=== PATIENT | male | born 1995 | race American Indian/Alaskan Native ===

== ENCOUNTER 2020-03-23 12:41 | Emergency (ER) | payer MEDICAID ==
[~2020-03-23] VITALS: Ht 170.2 cm; Wt 70.3 kg
[2020-03-23 12:56] VITALS: BP_SYST 144
[2020-03-23] MEDS ORDERED: LORazepam 2 MG/ML VIAL IM ONE (13:45)
[2020-03-23 14:56] VITALS: BP_SYST 126
== END 2020-03-23 14:56 | disposition home or self-care (01) ==
LOC: SED 12:41
DX: F41.9 Anxiety disorder, unspecified (principal); R07.9 Chest pain, unspecified
CPT/HCPCS: 71045; 93005; 96372; 99283; J2060